=== PATIENT | male | born 1980 | race Caucasian/White ===

== ENCOUNTER 2018-08-18 19:24 | Emergency (ER) | payer OTHER ==
[~2018-08-18] VITALS: Wt 128.5 kg
[2018-08-18 19:26] VITALS: BP 174/93; PULSE 80; RESP 18
[2018-08-18] MEDS ORDERED: DIPHENHYDRAMINE 50 MG INJ IM ONE (20:30)
[2018-08-18] MEDS ORDERED: METHYLPREDNISOLONE 125 MG INJ IM ONE (20:30)
[2018-08-18] MEDS ORDERED: PRED20TA PO (20:31)
[2018-08-18] MEDS ORDERED: FAMO-96 PO (20:31)
[2018-08-18] MEDS ORDERED: BEN50 PO (20:31)
--- NOTE | 2018-08-18 20:31 | ERD ---
ER Documentation Chief Complaint Chief Complaint swelling of eyes and lips x's 1 hr HPI 38-year-old male presents emergency department for complaints of itching swelling both eyes, feels numbness in upper lip, that started 1 hour after eating corn at a swap meet today, patient known to be allergic to shrimp but cannot remember eating shrimp or any seafood around it. Patient denies any rash, denies any shortness of breath, denies any swelling other parts of the body, took Benadryl 25 mg at home with much relief. ROS All systems reviewed and are negative except as per history of present illness. Medications Home Meds Reported Medications [none] Unknown Strength No Conflict Check 08/18/18 Allergies Allergies: Coded Allergies: No Known Allergy (Unverified , 08/18/18) PMhx/Soc Medical and Surgical Hx: pt denies Medical Hx, pt denies Surgical Hx Hx Alcohol Use: Yes Hx Substance Use: No Hx Tobacco Use: No Smoking Status: Never smoker FmHx Family History: No diabetes, No coronary disease, No other Physical Exam Vitals Vital Signs Date Temp Pulse Resp B/P (MAP) Pulse Ox O2 O2 Flow FiO2 Time Delivery Rate 08/18/18 97.9 80 18 174/93 96 19:26 (120) Physical Exam GENERAL: The child is well developed and nourished for age, interactive and vigorous appearing. No acute distress and nontoxic. HEENT: Atraumatic. Ears: Normal tympanic membrane, no erythema or bulging. No ear canal swelling. No ear discharge. Nose: normal nasal turbinates, no erythema or swelling. Normal nasal discharge. Throat: oropharynx clear. No tonsillar swe lling or tonsillar exudates. No lymphadenopathy. LUNGS: Clear to auscultation. No accessory muscle use. No wheezing, no crack les. No signs or symptoms of respiratory distress. HEART: Regular rate and rhythm. No murmurs, clicks, rubs or gallops. ABDOMEN: Soft, nontender and nondistended. Bowel sounds positive. No rebound or guarding. No gross peritoneal signs. No To or McBurney point tenderness. No gross masses. BACK: No midline tenderness, no costovertebral tenderness. EXTREMITIES: There is no peripheral cyanosis or edema. No focal pain or notable trauma. Full range of motion. Good capillary refill. NEURO: The patient moves all 4 extremities with 5/5 strength. Cranial nerves are grossly intact. Normal mental status for age. SKIN: There is no apparent rash, petechiae, erythema or swelling. Good skin turgor. Results 24 hrs Current Medications Medications Dose Sig/Joao Start Time Status Last (Trade) Ordered Route PRN Stop Time Admin Dose Reason Admin 25 mg ONCE ONCE 08/18/18 Diphenhydrami IM 20:30 08/18/18 ne HCl 20:31 (Benadryl) 125 mg ONCE ONCE 08/18/18 Methylprednis IM 20:30 08/18/18 olone Sodium 20:31 Succinate (Solu-Medrol) Benadryl and Solu-Medrol was given here in the emergency department. Procedures/MDM Medical decision making: Symptoms consistent with allergic reaction, no lip swelling this time, no other symptoms of angioedema, no anaphylactic shock noted at this time, prescription was given for Benadryl prednisone, Pepcid, is advised to avoid any seafood, any other possible allergens, no symptoms of any respiratory distress. Patient was advised to follow-up with primary care doctor in 2-3 days for reevaluation of symptoms. Patient was advised to continue department for any worsening symptoms. Disposition: Home. Stable. Departure Diagnosis: Primary Impression: Allergic reaction Encounter type: initial encounter Qualified Codes: T78.40XA - Allergy, unspecified, initial encounter Condition: Stable DESHAWN BOOGIE NP Aug 18, 2018 20:31
== END 2018-08-18 20:55 | disposition home or self-care (01) ==
LOC: FTE 19:24
DX: T78.1XXA Other adverse food reactions, not elsewhere classified, initial encounter (principal); R22.0 Localized swelling, mass and lump, head
CPT/HCPCS: 96372; 99284; J1200; J2930